=== PATIENT | male | born 1960 | race African-American/Black ===

== ENCOUNTER 2016-09-05 09:21 | Emergency (ER) | payer BC ==
[2016-09-05 09:54] VITALS: BP 138/101
--- NOTE | 2016-09-05 10:39 | UC ---
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 - History of Current Complaint Chief Complaint: UCGI Stated Complaint: DIARRHEA Time Seen by Provider: 09/05/16 10:32 Hx Obtained From: Patient Onset/Duration: Sudden Onset, Lasting Days - 2, Still Present Severity Initially: Mild Severity Currently: Mild Location: Diffuse Radiates: No Character: Cramping Aggravating Factor(s):: Food Alleviating Factor(s): Nothing Associated Signs And Symptoms: Positive: Diarrhea - Allergies/Home Medications Allergies/Adverse Reactions: Allergies Allergy/AdvReac Type Severity Reaction Status Date / Time No Known Allergies Allergy Verified 09/05/16 09:48 Home Medications: Home Medications Multiple Vitamin [Multi Vitamin] 1 tab PO DAILY 09/05/16 [History Confirmed 05/20] Ticagrelor* [Brilinta 90 MG*] 60 mg PO BID 09/05/16 [History Confirmed 09/05/16] PMH/Surg Hx/FS Hx/Imm Hx Previously Healthy: No Cardiovascular History: Cardiac Disease, Hypertension - Surgical History Surgical History: Yes Surgery Procedure, Year, and Place: abd surgery to remove foreign object at age 21. surgery on broken leg. diagnostic surgery for suspected testicular cancer - 12 yrs ago. tonsillectomy- 3 yrs ago. stent - Family History Known Family History: Positive: None - Social History Occupation: Employed Full-time Lives: With Family Alcohol Use: Occasionally Alcohol Amount: a couple of beer per month Substance Use Type: None Smoking Status (MU): Former Smoker Type: Cigars Amount Used/How Often: 4-5 puffs of a cigar some days Length of Time of Smoking/Using Tobacco: 4-5 yrs Have You Smoked in the Last Year: Yes Household Exposure Type: Cigarettes - Immunization History Most Recent Influenza Vaccination: n/a Most Recent Tetanus Shot: within 10 yrs Most Recent Pneumonia Vaccination: n/a Review of Systems Constitutional: Negative Skin: Negative Eyes: Negative ENT: Negative Respiratory: Negative Cardiovascular: Negative Gastrointestinal: Abdominal Pain, Diarrhea Genitourinary: Negative Motor: Negative Neurovascular: Negative Musculoskeletal: Negative Neurological: Negative Psychological: Negative All Other Systems Reviewed And Are Negative: Yes Physical Exam Triage Information Reviewed: Yes Appearance: Well-Appearing, No Pain Distress, Well-Nourished Vital Signs: Initial Vital Signs Temp 98.1 F 09/05/16 09:49 Pulse 75 09/05/16 09:49 Resp 16 09/05/16 09:49 BP 138/101 09/05/16 09:49 Pulse Ox 100 09/05/16 09:49 Vital Signs Reviewed: Yes Eye Exam: Normal Eyes: Positive: Conjunctiva Clear ENT Exam: Normal ENT: Positive: Normal ENT inspection, Hearing grossly normal, Pharynx normal, TMs normal. Negative: Nasal congestion, Nasal drainage, Tonsillar swelling, Tonsillar exudate, Trismus, Muffled/hoarse voice Dental Exam: Normal Neck exam: Normal Neck: Positive: Supple, Nontender, No Lymphadenopathy Respiratory Exam: Normal Respiratory: Positive: Chest non-tender, Lungs clear, Normal breath sounds, No respiratory distress, No accessory muscle use Cardiovascular Exam: Normal Cardiovascular: Positive: RRR, No Murmur, Pulses Normal, Brisk Capillary Refill Abdominal Exam: Normal Abdomen Description: Positive: Nontender, No Organomegaly, Soft Bowel Sounds: Positive: Present Musculoskeletal Exam: Normal Musculoskeletal: Positive: Strength Intact, ROM Intact, No Edema Neurological Exam: Normal Neurological: Positive: Alert, Muscle Tone Normal Psychological Exam: Normal Skin Exam: Normal Abd Pain Male Course/Dx - Course Course Of Treatment: diet modification, increase fluids, rest follow with pcp if not resolved in 2-3 days - Differential Dx/Clinical Impression Differential Diagnosis/HQI/PQRI: Bowel Obstruction, Diverticulitis, Other - acute diarrhea, Provider Diagnoses: acute diarrhea Discharge - Discharge Plan Condition: Stable Disposition: HOME Patient Education Materials: Acute Diarrhea (ED), DASH Eating Plan (ED), Hypertension (ED), Nutrition Tips for Relief of Diarrhea (ED) Forms: *Work Release Referrals: Emmett Elizabeth MD [Primary Care Provider] - 2 Days
== END 2016-09-05 10:59 | disposition home or self-care (01) ==
LOC: UCEAST 09:21
DX: R19.7 Diarrhea, unspecified (principal); I51.9 Heart disease, unspecified; Z87.891 Personal history of nicotine dependence
CPT/HCPCS: 99212; G0463

== ENCOUNTER 2017-07-20 07:09 | Emergency (ER) | payer BC ==
[2017-07-20 07:32] VITALS: BP 129/85
--- NOTE | 2017-07-20 08:11 | UC ---
HPI Febrile Illness - HPI Summary HPI Summary: 57 yr old male with body aches, sore throat, cough non productive for 24 hours. no chest pressure. no SOB. no n/v/d - History of Current Complaint Chief Complaint: UCGeneralIllness Time Seen by Provider: 07/20/17 07:33 Hx Obtained From: Patient Timing: Constant Initial Severity: Mild Current Severity: Mild Pain Intensity: 4 - Allergy/Home Medications Allergies/Adverse Reactions: Allergies Allergy/AdvReac Type Severity Reaction Status Date / Time No Known Allergies Allergy Verified 07/20/17 07:24 PMH/Surg Hx/FS Hx/Imm Hx Previously Healthy: Yes - Surgical History Surgical History: Yes Surgery Procedure, Year, and Place: abd surgery to remove foreign object at age 21. surgery on broken leg. diagnostic surgery for suspected testicular cancer - 12 yrs ago. tonsillectomy- 3 yrs ago. stent - Family History Known Family History: Positive: Cardiac Disease - Social History Occupation: Employed Full-time Lives: With Family Alcohol Use: Occasionally Alcohol Amount: a couple of beer per month Substance Use Type: None Smoking Status (MU): Former Smoker Type: Cigars Amount Used/How Often: 4-5 puffs of a cigar some days Length of Time of Smoking/Using Tobacco: 4-5 yrs Have You Smoked in the Last Year: Yes Household Exposure Type: Cigarettes - Immunization History Most Recent Influenza Vaccination: n/a Most Recent Tetanus Shot: within 10 yrs Most Recent Pneumonia Vaccination: n/a Review of Systems Constitutional: Fever, Chills, Fatigue ENT: Sore Throat, Ear Ache, Nasal Discharge, Sinus Congestion Respiratory: Cough Musculoskeletal: Myalgia Is Patient Immunocompromised?: No All Other Systems Reviewed And Are Negative: Yes Physical Exam Triage Information Reviewed: Yes Appearance: Well-Appearing, No Pain Distress, Well-Nourished Vital Signs: Initial Vital Signs Temp 98.6 F 07/20/17 07:26 Pulse 83 07/20/17 07:26 Resp 18 07/20/17 07:26 BP 129/85 07/20/17 07:26 Pulse Ox 99 07/20/17 07:26 Vital Signs Reviewed: Yes Eye Exam: Normal ENT Exam: Normal ENT: Positive: Pharynx normal, Nasal congestion, TMs normal. Negative: TM bulging, TM dull, TM red, Tonsillar swelling, Tonsillar exudate Dental Exam: Normal Neck exam: Normal Neck: Positive: 1 Respiratory Exam: Normal Cardiovascular Exam: Normal Musculoskeletal Exam: Normal Neurological Exam: Normal Psychological Exam: Normal Skin Exam: Normal Course/Dx - Course Assessment/Plan: Viral URI -- push fluids, rest, if any chest pressure go to ED. neg flu swab. - Diagnoses Clinic Provider Diagnoses: vIRAL uRI Discharge - Sign-Out/Discharge Documenting (check all that apply): Discharge/Admit/Transfer - Discharge Plan Condition: Good Disposition: HOME Patient Education Materials: Upper Respiratory Infection (ED) Forms: *Work Release Referrals: Emmett Elizabeth MD [Primary Care Provider] - 4 Days - Billing Disposition and Condition Condition: GOOD Disposition: HOME
== END 2017-07-20 08:22 | disposition home or self-care (01) ==
LOC: UCEAST 07:09
DX: J06.9 Acute upper respiratory infection, unspecified (principal); Z87.891 Personal history of nicotine dependence
CPT/HCPCS: 87502; 99211; G0463

== ENCOUNTER 2018-03-13 12:39 | Emergency (ER) | payer BC ==
[2018-03-13 13:56] VITALS: BP 140/102
--- NOTE | 2018-03-13 14:12 | UC ---
Shoulder Pain HPI - HPI Summary HPI Summary: 7-10 days of left shoulder pain and intermittent tingling of his left fourth and fifth fingers. 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 Patient feels he pulled muscles. Denies chest pain, shortness of breath, nausea, sweats. States he leans on his left elbow a lot while driving. - History of Current Complaint Chief Complaint: UCUpperExtremity Stated Complaint: NECK PAIN SHOULDER PAIN Time Seen by Provider: 03/13/18 13:02 Hx Obtained From: Patient Onset/Duration: Gradual Onset, Lasting Days, Still Present Timing: Constant Severity Initially: Moderate Severity Currently: Moderate Location Of Pain: Is Discrete @ - LEFT SHOULDER Pain Intensity: 1 Pain Scale Used: 0-10 Numeric Character: Dull Aggravating Factor(s): Movement Alleviating Factor(s): Rest Associated Signs And Symptoms: Positive: Numbness/Tingling. Negative: Swelling , Redness Related History: Dominant Hand Left - Allergies/Home Medications Allergies/Adverse Reactions: Allergies Allergy/AdvReac Type Severity Reaction Status Date / Time No Known Allergies Allergy Verified 03/13/18 13:00 PMH/Surg Hx/FS Hx/Imm Hx Cardiovascular History: Cardiac Disease - [place] S/P STENT, Hypertension - Surgical History Surgical History: Yes Surgery Procedure, Year, and Place: abd surgery to remove foreign object at age 21. surgery on broken leg. diagnostic surgery for suspected testicular cancer - 12 yrs ago. tonsillectomy- 3 yrs ago. stent 2016 - Family History Known Family History: Positive: Cardiac Disease - Social History Alcohol Use: Occasionally Alcohol Amount: a couple of beer per month Substance Use Type: None Smoking Status (MU): Former Smoker Type: Cigars Amount Used/How Often: 4-5 puffs of a cigar some days Length of Time of Smoking/Using Tobacco: 4-5 yrs Have You Smoked in the Last Year: Yes Household Exposure Type: Cigarettes - Immunization History Most Recent Influenza Vaccination: n/a Most Recent Tetanus Shot: within 10 yrs Most Recent Pneumonia Vaccination: n/a Review of Systems All Other Systems Reviewed And Are Negative: Yes Constitutional: Positive: Negative ENT: Positive: Negative Respiratory: Positive: Negative Cardiovascular: Positive: Negative Gastrointestinal: Positive: Negative Musculoskeletal: Positive: Arthralgia, Myalgia Neurological: Positive: Paresthesia Physical Exam Triage Information Reviewed: Yes Appearance: Well-Appearing, No Pain Distress, Well-Nourished Vital Signs: Initial Vital Signs Temp 98 F 03/13/18 13:02 Pulse 74 03/13/18 13:02 Resp 18 03/13/18 13:02 BP 168/110 03/13/18 13:02 Pulse Ox 98 03/13/18 13:02 Vital Signs Reviewed: Yes Eyes: Positive: Conjunctiva Clear ENT: Positive: Hearing grossly normal Neck: Positive: Supple Respiratory Exam: Normal Cardiovascular Exam: Normal Abdomen Description: Positive: Soft Musculoskeletal: Positive: ROM Intact, No Edema, Other: - TTP LEFT TRAPEZIUS. POSITIVE TINELS OVER LEFT ULNAR GROOVE. EQUIVOCAL ROTATOR CUFF TESTING Neurological: Positive: Alert Psychological: Positive: Age Appropriate Behavior Skin: Negative: Rashes Diagnostics - EKG Cardiac Rate: NL - 68BPM Cardiac Rhythm: Sinus: Normal Ectopy: None Shoulder Course/Dx - Course Assessment/Plan: PATIENT'S SYMPTOMS AND EXAM MOST CONSISTENT WITH STRAIN OF HIS LEFT TRAPEZIUS AND DELTOID MUSCLES ALONG WITH AN ULNAR NERVE PALSY. 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 SYMPTOMS ARE EXACERBATED BY THESE MOVEMENTS. 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 GIVEN HIS CLINICAL PRESENTATION, LOW SUSPICION FOR CARDIAC INVOLVEMENT AT THIS TIME BUT DISCUSSED AT LENGTH HOW WE ARE UNABLE TO RULE OUT ANY CARDIAC ETIOLOGY HERE IN THE URGENT CARE. PATIENT COUNSELED ON RED FLAG SYMPTOMS AND WILL GO TO THE ED WITHOUT FAIL IF SYMPTOMS CHANGE OR WORSEN. REPEAT BP IMPROVED AT 140/102. - Differential Dx/Diagnosis Provider Diagnosis: Strain of left trapezius muscle, Ulnar nerve palsy of left upper extremity Discharge - Sign-Out/Discharge Documenting (check all that apply): Patient Departure All imaging exams completed and their final reports reviewed: No Studies - Discharge Plan Condition: Stable Disposition: HOME Prescriptions: Cyclobenzaprine TAB* [Flexeril TAB*] 10 mg PO BID PRN #30 tab PRN Reason: Pain Naproxen [Naproxen 500 mg tab] 500 mg PO BID PRN #30 tablet PRN Reason: Pain Patient Education Materials: Shoulder Separation Exercises (GEN), Muscle Strain (ED) Forms: *Work Release Referrals: Emmett Elizabeth MD [Primary Care Provider] - (KEEP YOUR APPT NEXT WEEK) Additional Instructions: YOUR SYMPTOMS ARE CONSISTENT WITH A STRAIN OF YOUR TRAPEZIUS AND DELTOID MUSCLES ALONG WITH AN ULNAR NERVE PALSY. TAKE THE NEXT FEW DAYS TO REST AND AVOID THE REPETITIVE MOTION THAT IS LIKELY EXACERBATING YOUR SYMPTOMS. TRY NOT TO LEAN ON YOUR ELBOW. IF YOU DO NOT IMPROVE EXPECTED OVER THE NEXT FEW WEEKS FOLLOW-UP WITH YOUR PCP. YOU MAY BENEFIT FROM IMAGING AT THAT TIME. PHYSICAL THERAPY REFERRAL ALSO PROVIDED FOR YOU TO USE IF DESIRED. REST. NAPROXEN NEEDED FOR DISCOMFORT. TAKE MUSCLE RELAXER BEFORE BED. MASSAGE MAY ALSO BE HELPFUL. BE SURE TO GO THROUGH SLOW RANGE OF MOTION AND STRETCHING EXERCISES DAILY YOU ARE ABLE TO PREVENT STIFFENING UP AND MAKING THE DISCOMFORT WORSE. HANDOUT PROVIDED. LOW SUSPICION FOR ANY CARDIAC CAUSE OF YOUR SYMPTOMS BUT GO TO ED WITHOUT FAIL IF YOU DEVELOP WORSENING ARM PAIN, SHORTNESS OF BREATH, CHEST PAIN, NAUSEA, SWEATS, DIZZINESS OR ANY OTHER CONCERNING SYMPTOMS. - Billing Disposition and Condition Condition: STABLE Disposition: Home
== END 2018-03-13 14:10 | disposition home or self-care (01) ==
LOC: UCEAST 12:39
DX: S29.012A Strain of muscle and tendon of back wall of thorax, initial encounter (principal); X50.3XXA Overexertion from repetitive movements, initial encounter; Y93.89 Activity, other specified; Y92.89 Other specified places as the place of occurrence of the external cause; Y99.0 Civilian activity done for income or pay; G56.22 Lesion of ulnar nerve, left upper limb; Z87.891 Personal history of nicotine dependence
CPT/HCPCS: 93005; 99212; G0463

== ENCOUNTER 2018-08-01 11:02 | Emergency (ER) | payer BC ==
--- NOTE | 2018-08-01 11:57 | UC ---
Abdominal Pain Male HPI - HPI Summary HPI Summary: 58 yo male presents with loose stools last night. He tells me that he is has been taking an antibiotic once a day for the last week for a dental infection - unsure name of anbx. Last night he developed some loose stools and decreased appetite. States he did not sleep well last night due to having multiple BMs. Had some lower abdominal cramping that resolved with BM. Had about 5-10 episodes. This morning he feels better and has not had any more loose stools. He has not eaten anything yet this morning for fear of more diarrhea. He denies abdominal pain, n/v, dysuria, or blood in stool. - History of Current Complaint Stated Complaint: DIARRHEA Time Seen by Provider: 08/01/18 11:56 Hx Obtained From: Patient Onset/Duration: Sudden Onset Severity Initially: Mild Severity Currently: None Pain Intensity: 2 Pain Scale Used: 0-10 Numeric - Allergies/Home Medications Allergies/Adverse Reactions: Allergies Allergy/AdvReac Type Severity Reaction Status Date / Time No Known Allergies Allergy Verified 08/01/18 11:59 Home Medications: Home Medications Valsartan 320 mg PO DAILY 08/01/18 [History Confirmed 08/01/18] PMH/Surg Hx/FS Hx/Imm Hx Cardiovascular History: Cardiac Disease, Hypertension - Surgical History Surgical History: Yes Surgery Procedure, Year, and Place: abd surgery to remove foreign object at age 21. surgery on broken leg. diagnostic surgery for suspected testicular cancer - 12 yrs ago. tonsillectomy- 3 yrs ago. stent 2016 - Family History Known Family History: Positive: Cardiac Disease - Social History Occupation: Employed Full-time Lives: With Family Alcohol Use: Occasionally Alcohol Amount: a couple of beer per month Substance Use Type: None Smoking Status (MU): Former Smoker Type: Cigars Amount Used/How Often: 4-5 puffs of a cigar some days Length of Time of Smoking/Using Tobacco: 4-5 yrs Have You Smoked in the Last Year: Yes Household Exposure Type: Cigarettes - Immunization History Most Recent Influenza Vaccination: n/a Most Recent Tetanus Shot: within 10 yrs Most Recent Pneumonia Vaccination: n/a Review of Systems All Other Systems Reviewed And Are Negative: Yes Constitutional: Positive: Negative Skin: Positive: Negative Respiratory: Positive: Negative Cardiovascular: Positive: Negative Gastrointestinal: Positive: Abdominal Pain, Diarrhea Genitourinary: Positive: Negative Neurovascular: Positive: Negative Neurological: Positive: Negative Psychological: Positive: Negative Physical Exam - Summary Physical Exam Summary: GENERAL: NAD. WDWN. No pain distress. SKIN: No rashes, sores, lesions, or open wounds. NECK: Supple. Nontender. No lymphadenopathy. CHEST: CTAB. No r/r/w. No accessory muscle use. Breathing comfortably and in no distress. CV: RRR. Without m/r/g. Pulses intact. Cap refill <2seconds ABDOMEN: Soft. NTTP. No distention or guarding. No CVA tenderness. Bowel sounds present NEURO: Alert. PSYCH: Age appropriate behavior. Triage Information Reviewed: Yes Vital Signs: Vital Signs: Temp Pulse Resp BP Pulse Ox 98.2 F 74 18 172/108 99 08/01/18 11:53 08/01/18 11:53 08/01/18 11:53 08/01/18 12:37 08/01/18 11:53 Vital Signs Reviewed: Yes Abd Pain Male Course/Dx - Course Course Of Treatment: Suspect loose stools associated with anbx use, but low suspicion for c diff at this time as his loose stools have resolved this morning. Advised to hold anbx for today and start taking probiotic OTC. He has a f/u with his PCP tomorrow, instructed to discuss this with them and if loose stools/diarrhea restart would likely benefit from a stool sample. - Differential Dx/Clinical Impression Provider Diagnosis: Loose stools Discharge - Sign-Out/Discharge Documenting (check all that apply): Patient Departure All imaging exams completed and their final reports reviewed: No Studies - Discharge Plan Condition: Stable Disposition: HOME Patient Education Materials: Probiotic (By mouth), Acute Diarrhea (ED) Forms: *Work Release Referrals: Emmett Elizabeth MD [Primary Care Provider] - Additional Instructions: If you develop a fever, shortness of breath, chest pain, new or worsening symptoms - please call your PCP or go to the ED immediately. Your blood pressure was high at todays visit. Please see your primary provider within 4 weeks for recheck and re-evaluation. Please try taking an [id number] probiotic to help treat your diarrhea. Keep your recheck tomorrow with your primary doctor - Billing Disposition and Condition Condition: STABLE Disposition: Home
[2018-08-01 12:37] VITALS: BP 172/108
== END 2018-08-01 12:48 | disposition home or self-care (01) ==
LOC: UCEAST 11:02
DX: R19.5 Other fecal abnormalities (principal); R63.8 Other symptoms and signs concerning food and fluid intake; I10 Essential (primary) hypertension; Z87.891 Personal history of nicotine dependence
CPT/HCPCS: 99211; G0463

== ENCOUNTER 2019-01-24 07:21 | Emergency (ER) | payer BC ==
--- NOTE | 2019-01-24 08:14 | UC ---
Neck Pain HPI - HPI Summary HPI Summary: The patient is a 59-year-old male with a known history of severe cervical degenerative disc disease who presents here with a two-week history of right lateral neck pain radiating down the right arm. He describes the pain is burning. He notes that his symptoms worsen with use of his right arm. He is a consulting business developer. He has had some similar pattern in the past however this involved his left arm. He states it resolved with some physical therapy. He denies any headache. - History of Current Complaint Chief Complaint: UCUpperExtremity Stated Complaint: NECK PAIN Time Seen by Provider: 01/24/19 07:53 Hx Obtained From: Patient Onset/Duration Of Injury/Symptoms: Weeks Mechanism Of Injury: No Known Trauma Timing: Constant Onset/Duration: Gradual Onset, Lasting Weeks Severity: Moderate Pain Intensity: 8 Pain Scale Used: 0-10 Numeric Location: Diffuse Character: Aching, Spasmotic, Burning Aggravating Factors: Position, Movement Alleviating Factors: Nothing Associated Signs & Symptoms: Positive: Negative Head: 1 - pain here 2 - tender/firm right trap - Allergies/Home Medications Allergies/Adverse Reactions: Allergies Allergy/AdvReac Type Severity Reaction Status Date / Time No Known Allergies Allergy Verified 01/24/19 07:34 Home Medications: Home Medications Atorvastatin* [Lipitor*] 20 mg PO DAILY 01/24/19 [History Confirmed 01/24/19] PMH/Surg Hx/FS Hx/Imm Hx Previously Healthy: Yes - sarcoid Cardiovascular History: Cardiac Disease, Hypertension - Surgical History Surgical History: Yes Surgery Procedure, Year, and Place: abd surgery to remove foreign object at age 21. surgery on broken leg. diagnostic surgery for suspected testicular cancer - 12 yrs ago. tonsillectomy- 3 yrs ago. stent 2017 - Family History Known Family History: Positive: None, Cardiac Disease - Social History Alcohol Use: Weekly Alcohol Amount: a couple of beer per month Substance Use Type: None Smoking Status (MU): Former Smoker Type: Cigars Amount Used/How Often: 4-5 puffs of a cigar some days Length of Time of Smoking/Using Tobacco: 4-5 yrs Have You Smoked in the Last Year: Yes Household Exposure Type: Cigarettes - Immunization History Most Recent Influenza Vaccination: n/a Most Recent Tetanus Shot: within 10 yrs Most Recent Pneumonia Vaccination: n/a Review of Systems All Other Systems Reviewed And Are Negative: Yes Constitutional: Positive: Negative Skin: Positive: Negative Eyes: Positive: Negative ENT: Positive: Negative Respiratory: Positive: Negative Cardiovascular: Positive: Negative Gastrointestinal: Positive: Negative Genitourinary: Positive: Negative Motor: Positive: Negative Musculoskeletal: Positive: Arthralgia - neck, Myalgia - right trap Neurological: Positive: Negative Psychological: Positive: Negative Physical Exam Triage Information Reviewed: Yes Appearance: Well-Appearing, No Pain Distress, Well-Nourished Vital Signs: Initial Vital Signs Temp 98.1 F 01/24/19 07:27 Pulse 72 01/24/19 07:27 Resp 18 01/24/19 07:27 BP 00/01/24/19 07:27 Pulse Ox 99 01/24/19 07:27 Vital Signs Reviewed: Yes Eyes: Positive: Conjunctiva Clear ENT: Positive: Normal ENT inspection, Uvula midline. Negative: Nasal congestion , Nasal drainage, Tonsillar swelling, Tonsillar exudate, Trismus, Hoarse voice Dental Exam: Normal Neck: Positive: No Lymphadenopathy, Tenderness @ - right trap, Other: - limited ROM Respiratory: Positive: Lungs clear, Normal breath sounds, No respiratory distress, No accessory muscle use Cardiovascular: Positive: RRR, No Murmur Musculoskeletal: Positive: ROM Intact - right shoulder...but painful, No Edema Neurological: Positive: Alert, Other: - strength intact, brisk DTRs Psychological Exam: Normal Skin Exam: Normal Neck Pain Course/Dx - Course Course Of Treatment: Pt declined soft cervical collar - Differential Dx/Diagnosis Provider Diagnosis: Cervical radiculopathy, Strain of right trapezius muscle Discharge ED - Sign-Out/Discharge Documenting (check all that apply): Patient Departure All imaging exams completed and their final reports reviewed: No Studies - Discharge Plan Condition: Stable Disposition: HOME Prescriptions: Naproxen [Naproxen 500 mg tab] 500 mg PO BID PRN #14 tablet PRN Reason: Pain Patient Education Materials: Cervical Radiculopathy (ED) Forms: *Work Release Referrals: Emmett Elizabeth MD [Primary Care Provider] - (BP recheck in days to 2 weeks) Nely Chavez MD [Medical Doctor] - As Soon As Possible Additional Instructions: PT consult - Billing Disposition and Condition Condition: STABLE Disposition: Home
[2019-01-24 08:18] VITALS: BP 172/112
== END 2019-01-24 08:31 | disposition home or self-care (01) ==
LOC: UCEAST 07:21
DX: S46.811A Strain of other muscles, fascia and tendons at shoulder and upper arm level, right arm, initial encounter (principal); M50.10 Cervical disc disorder with radiculopathy, unspecified cervical region; I10 Essential (primary) hypertension; Z87.891 Personal history of nicotine dependence; X58.XXXA Exposure to other specified factors, initial encounter; Y92.9 Unspecified place or not applicable
CPT/HCPCS: 99212; G0463

== ENCOUNTER 2019-02-20 21:02 | Emergency (ER) | payer BC ==
--- OUTSIDE RECORDS SUMMARY | 2019-02-20 21:10 | XMS REPORT | Continuity of Care Document ---
:1960 External Reference #:[id number] Author Name Emmett Elizabeth M.D. (transmitted by agent of provider Madhavi Lundberg) Address [address], [place] [address] Care Team Providers Name Role Phone Emmett Elizabeth III, MD - Internal Care Team Information Vp Public [employer] [phone] Medicine Kana Garcia MD - Cardiovascular Care Team Information [employer] Public [employer] Disease Problems Active Problems Provider Date Essential hypertension Emmett Elizabeth M.D. 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 Onset: 03/07/2018 Cardiomyopathy, unspecified Shekhar Rg Patterson M.D., [facility], Onset: 05/02/2018 FASNC Localized, primary osteoarthritis Niki Lucia MD Onset: 09/28/2018 Social History Type Date Description Comments Sex Unknown Tobacco Use Start: Unknown End: Former Cigarette Smoker Unknown Smoking Status Reviewed: 01/18/19 Former Cigarette Smoker ETOH Use Denies alcohol use Tobacco Use Start: Unknown End: Patient is a former social smoker for Unknown smoker 10yrs. Little cigars, 3-4/week; quit July 2015. (+) 1-2 cigarettes/day in the past, quit 1996 Recreational Drug Use Denies Drug Use Exercise Type/Frequency Exercises regularly walks, active around the house Allergies, Adverse Reactions, Alerts Description No Known Drug Allergies Medications Active Medications SIG Qnty Indications Ordering Date Provider Spironolactone 1 by mouth 90tabs Emmett Hinton 12/11/2018 50mg Tablets every day Brenda Elizabeth Valsartan 1 by mouth 90tabs I10 Emmett Hinton 05/14/2018 320mg Tablets every day Brenda Elizabeth Potassium Chloride Kylah Take One Tablet 60tabs Emmett Hinton 05/05/2018 ER by mouth once a Brenda Elizabeth 20Meq Tablets ER day Metformin HCL 2 by mouth 120tabs E11.9 Emmett Hinton 03/19/2018 500mg Tablets twice a day Brenda Elizabeth Metoprolol Succinate ER 1 by mouth 90tabs Shekhar Diez 02/10/2016 every day along Brenda Patterson, 50mg Tablets ER 24HR with a 100mg FACC, FASNC tab Aspirin 1 by mouth Unknown 81mg Tablets DR every day Atorvastatin Calcium Take 1 tablet 90tabs Emmett Hinton 40mg by mouth every Brenda Elizabeth Tablets day Amlodipine Besylate 1 by mouth 30tabs Kana Garcia, 10mg every day M.DSmiley, FACC, Tablets FSCAI Metoprolol Succinate ER 1 tab by mouth 90tabs Shekhar Diez every day along Brenda Patterson, 100mg Tablets ER 24HR with a 50mg tab FACC, FASNC Multi For Him 1 tablet po Unknown Tablets daily Medications Administered in Office Medication SIG Qnty Indications Ordering Provider Date Injection Edgardo Lucia MD 10/19/2018 Derivative, Euflexxa Per Dose Injection Injection Edgardo Or Guerda Frankel PA-C 10/05/2018 Derivative, Euflexxa Per Dose Injection Injection Edgardo Or Niki Lucia MD 09/28/2018 Derivative, Euflexxa Per Dose Injection Immunizations CPT Code Status Date Vaccine Reaction Lot # [id number] Given 03/17/2017 Pneumonia Vaccine Pt. tolerated well. [id number] Vital Signs Date Vital Result Comment 01/18/2019 9:14am Height 70 inches 5'10" Weight 220.00 lb Heart Rate 66 /min BP Systolic Sitting 151 mmHg BP Diastolic Sitting 100 mmHg BMI (Body Mass Index) 31.6 kg/m2 12/11/2018 11:35am Height 70 inches 5'10" Weight 218.00 lb Heart Rate 61 /min BP Systolic 148 mmHg BP Diastolic 72 mmHg Body Temperature 97.0 F Pain Level 2 BMI (Body Mass Index) 31.3 kg/m2 Results Test Acquired Date Facility Test Result H/L Range Note Basic Metabolic 10/09/2018 [facility] Sodium 137 mmol/L Normal 135-145 [address] [place] [address] [phone] Potassium 4.5 mmol/L Normal 3.5-5.0 Chloride 110 mmol/L Normal 101-111 Co2 Carbon Dioxide 19 mmol/L Low 22-32 Anion Gap 8 mmol/L Normal 2-11 Glucose 108 mg/dL High 70-100 Blood Urea Nitrogen 19 mg/dL Normal 6-24 Creatinine 1.36 mg/dL High 0.67-1.17 BUN/Creatinine Ratio 14.0 Normal 8-20 Calcium 9.4 mg/dL Normal 8.6-10.3 Egfr Non- 54.2 >60 Egfr 65.6 >60 1 Laboratory test finding 10/09/2018 [facility] Renin 0.6 ng/mL/h [address] [place] [address] [phone] Aldosterone 39 ng/dL Abnormal <=21 3 Basic Metabolic 09/14/2018 [facility] Sodium 140 mmol/L Normal 135-145 [address] [place] [address] [phone] Potassium 4.6 mmol/L Normal 3.5-5.0 Chloride 110 mmol/L Normal 101-111 Co2 Carbon Dioxide 23 mmol/L Normal 22-32 Anion Gap 7 mmol/L Normal 2-11 Glucose 101 mg/dL High 70-100 Blood Urea Nitrogen 13 mg/dL Normal 6-24 Creatinine 1.29 mg/dL High 0.67-1.17 BUN/Creatinine Ratio 10.1 Normal 8-20 Calcium 9.6 mg/dL Normal 8.6-10.3 Egfr Non- 57.6 >60 Egfr 69.7 >60 4 Laboratory test finding 08/09/2018 [facility] In House Hemoglobin A1c 6.7 5-7 1 Because ethnic data is not always readily available, this report includes an eGFR for both -Americans and non- Americans. The National Kidney Disease Education Program (NKDEP) does not endorse the use of the MDRD equation for patients that are not between the ages of 18 and 70, are , have extremes of body size, muscle mass, or nutritional status, or are non- or non-. According to the National Kidney Foundation, irrespective of diagnosis, the stage of the disease is based on the level of kidney function: Stage Description GFR(mL/min/1.73 m(2)) 1 Kidney damage with normal or decreased GFR 90 2 Kidney damage with mild decrease in GFR 60-89 3 Moderate decrease in GFR 30-59 4 Severe decrease in GFR 15-29 5 Kidney failure <15 (or dialysis) 2 REFERENCE VALUE (Peripheral vein specimen) Na-deplete, upright: Mean: 5.9 Range: 2.9-10.8 Na-replete, upright: Mean: 1.0 Range: < or =0.6-3.0 ADDITIONAL INFORMATION Testing performed by Liquid Chromatography-Tandem Mass Spectrometry (LC-MS/MS). This test was developed and its performance characteristics determined by [facility] in a manner consistent with CLIA requirements. This test has not been cleared or approved by the U.S. Food and Drug Administration. Test Performed by: [facility] [employer] - [address] [address] 3 ADDITIONAL INFORMATION Reference range for patients 11 years and older is based on upright A.M. collection from subjects without sodium restrictions. This test was developed and its performance characteristics determined by [facility] in a manner consistent with CLIA requirements. This test has not been cleared or approved by the U.S. Food and Drug Administration. Test Performed by: [facility] [employer] - [address] [address] 4 Because ethnic data is not always readily available, this report includes an eGFR for both -Americans and non- Americans. The National Kidney Disease Education Program (NKDEP) does not endorse the use of the MDRD equation for patients that are not between the ages of 18 and 70, are , have extremes of body size, muscle mass, or nutritional status, or are non- or non-. According to the National Kidney Foundation, irrespective of diagnosis, the stage of the disease is based on the level of kidney function: Stage Description GFR(mL/min/1.73 m(2)) 1 Kidney damage with normal or decreased GFR 90 2 Kidney damage with mild decrease in GFR 60-89 3 Moderate decrease in GFR 30-59 4 Severe decrease in GFR 15-29 5 Kidney failure <15 (or dialysis) Procedures Date Code Description Status 10/19/2018 Inj/Aspir Major JT Or Bursa W/ US Completed 10/05/2018 Inj/Aspir Major JT Or Bursa W/ US Completed 09/28/2018 Inj/Aspir Major JT Or Bursa W/ US Completed 10/30/2017 [id number] Colonoscopy Completed 02/17/2016 [id number] Mammogram Completed Medical Devices Description No Information Available Encounters Type Date Location Provider Dx Diagnosis Office Visit 12/11/2018 [facility] Niki Lucia, M17.11 Unilateral primary 11:30a at [facility] osteoarthritis, right knee Office Visit 09/14/2018 Jess Hinton I10 Essential (primary) 9:00a Elfego Elizabeth M.D. 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 01/18/2019 N62 Hypertrophy of breast Emmett Elizabeth M.D. 12/11/2018 M17.11 Unilateral primary osteoarthritis, right Niki Lucia MD knee 10/19/2018 M17.11 Unilateral primary osteoarthritis, right Niki Lucia MD knee 10/05/2018 M17.11 Unilateral primary osteoarthritis, right Guerda ZHANG Frankel knee 09/28/2018 M17.11 Unilateral primary osteoarthritis, right Niki Lucia MD knee 09/14/2018 I10 Essential (primary) hypertension Emmett Elizabeth M.D. 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 hypoglycemic drugs 08/09/2018 E11.9 Type 2 diabetes mellitus without Emmett Elizabeth M.D. complications 08/09/2018 I10 Essential (primary) hypertension Emmett Elizabeth M.D. Plan of Treatment 01/18/2019 - Emmett Elizabeth M.D.I10 Essential (primary) hypertensionComments: Recent BPs 140s/80s but office BP high again today. CT scan with several small adrenal nodules and with an elevated aldosterone level in October secondary HTN remains a possibility. Continue current rx and recheck labs. Further eval for possible adrenal mediated HTN [id number] Hypertrophy of breastNew Xrays:US Breast Complete Left, Ordered: 01/18/19US Breast Complete Right, Ordered: MG Diagnostic Mammo Bilateral, Ordered: 01/18/19 Functional Status Description No Information Available Mental Status Description No Information Available Referrals Description No Information Available
--- OUTSIDE RECORDS SUMMARY | 2019-02-20 21:10 | XMS REPORT | Continuity of Care Document ---
:1960 External Reference #:[id number] Author Name Ally Hairston MD (transmitted by agent of provider Deyanira Saucedo) Address [address] [place] [address] Care Team Providers Name Role Phone Emmett Elizabeth III, MD - Internal Care Team Information Tobacco Stemmer Machine Medicine Kana Garcia MD - Cardiovascular Care Team Information [employer] [phone] Disease Ally Hairston MD - Nephrology Care Team Information [employer] Problems Active Problems Provider Date Essential hypertension Emmett Elizabeth M.D. 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 Onset: 03/07/2018 Cardiomyopathy, unspecified Shekhar Rg Patterson M.D., [facility], Onset: 05/02/2018 FASNC Localized, primary osteoarthritis Niki Lucia MD Onset: 09/28/2018 Social History Type Date Description Comments Sex Unknown Tobacco Use Start: Unknown End: Former Cigarette Smoker Unknown Smoking Status Reviewed: 02/08/19 Former Cigarette Smoker ETOH Use Denies alcohol [...] Medications SIG Qnty Indications Ordering Date Provider Nifedipine ER one by mouth 30tabs I12.9 Ally Hairston MD 02/08/2019 90mg Tablets daily ER 24HR Triamterene/Hydrochloro one by mouth 30caps I12.9 Ally Hairston MD 2018 thiazide daily 50-25mg Capsules Spironolactone 1 by mouth 90tabs Emmett E. 12/11/2018 50mg Tablets every day Brenda Elizabeth Valsartan 1 by mouth 90tabs I10 Emmett ESmiley 05/14/2018 320mg Tablets every day Brenda Elizabeth Potassium Chloride Kylah Take One Tablet 60tabs Emmett E. 05/05/2018 ER by mouth twice Brenda Elizabeth 20Meq Tablets ER a day Metformin HCL 2 by mouth 120tabs E11.9 Emmett ESmiley 03/19/2018 500mg Tablets twice a day Brenda Elizabeth Metoprolol Succinate ER 1 by mouth 90tabs Shekhar Rg 02/10/2016 every day along Brenda Patterson, 50mg Tablets ER 24HR with a 100mg FACC, FASNC tab Aspirin 1 by mouth Unknown 81mg Tablets DR every day Atorvastatin Calcium Take 1 tablet 90tabs Emmett E. 40mg by mouth every Brenda Elizabeth Tablets day Amlodipine Besylate 1 by mouth 30tabs Kana Garcia, 10mg every day Brenda, FACC, Tablets FSCAI Metoprolol Succinate ER 1 tab by mouth 90tabs Shekhar Rg every day along Brenda Patterson, 100mg Tablets ER 24HR with a 50mg tab FACC, FASNC Multi For Him 1 tablet po Unknown Tablets daily Medications Administered in Office Medication SIG Qnty Indications Ordering Provider Date Injection Edgardo Or Niki Lucia MD 10/19/2018 Derivative, Euflexxa Per Dose Injection Injection Edgardo Or Guerda Frankel PA-C 10/05/2018 Derivative, Euflexxa Per Dose Injection Injection Hyaluronan Or Niki Lucia MD 09/28/2018 Derivative, Euflexxa Per Dose Injection Immunizations CPT Code Status Date Vaccine Reaction Lot # [id number] Given 03/17/2017 Pneumonia Vaccine Pt. tolerated well. [id number] Vital Signs Date Vital Result Comment 02/08/2019 10:11am Height 70 inches 5'10" Weight 222.00 lb Heart Rate 73 /min BP Systolic Sitting 152 mmHg left arm large cuff BP Diastolic Sitting 94 mmHg left arm large cuff O2 % BldC Oximetry 99 % room air BMI (Body Mass Index) 31.9 kg/m2 01/18/2019 9:14am Height 70 inches 5'10" Weight 220.00 lb Heart Rate 66 /min BP Systolic Sitting 151 mmHg BP Diastolic Sitting 100 mmHg BMI (Body Mass Index) 31.6 kg/m2 Results Test Acquired Facility Test Result H/L Range Note Date Laboratory test 01/18/2019 [facility] Renin 1.[address] ng/mL/h [place], [place] [id number] [phone] Metanephrines 01/18/2019 [facility] Plasma Free 0.83 [address] Normetanephrine [place], [place] [id number] [phone] Plasma Free Metanephrine 0.25 3 Basic Metabolic 01/18/2019 [facility] Sodium 138 mmol/L Normal 135-[address] [place], [place] [address] [phone] Potassium 4.9 mmol/L Normal 3.5-5.0 Chloride 107 mmol/L Normal 101-111 Co2 Carbon Dioxide 27 mmol/L Normal 22-32 Anion Gap 4 mmol/L Normal 2-11 Glucose 102 mg/dL High 70-100 Blood Urea Nitrogen 19 mg/dL Normal 6-24 Creatinine 1.54 mg/dL High 0.67-1.17 BUN/Creatinine Ratio 12.3 Normal 8-20 Calcium 10.1 mg/dL Normal 8.6-10.3 Egfr Non- 47.0 >60 Egfr 56.8 >60 4 Laboratory test 01/18/2019 [facility] Aldosterone 31 Abnormal <=21 [address] ng/dL [place], [place] [address] [phone] Metanephrines 01/18/2019 [facility] Plasma Free 0.83 <0.[address] Normetanephrine nmol/[place] [address] [phone] Plasma Free Metanephrine 0.25 nmol/L <0.50 6 Basic Metabolic 10/09/2018 [facility] Sodium 137 mmol/L Normal 135-[address] [place] [address] [phone] Potassium 4.5 mmol/L Normal 3.5-5.0 Chloride 110 mmol/L Normal 101-111 Co2 Carbon Dioxide 19 mmol/L Low 22-32 Anion Gap 8 mmol/L Normal 2-11 Glucose 108 mg/dL High 70-100 Blood Urea Nitrogen 19 mg/dL Normal 6-24 Creatinine 1.36 mg/dL High 0.67-1.17 BUN/Creatinine Ratio 14.0 Normal 8-20 Calcium 9.4 mg/dL Normal 8.6-10.3 Egfr Non- 54.2 >60 Egfr 65.6 >60 7 Laboratory test finding 10/09/2018 [facility] Renin 0.6 ng/mL/h [address] [place] [address] [phone] Aldosterone 39 ng/dL Abnormal <=21 9 Basic Metabolic 09/14/2018 [facility] Sodium 140 mmol/L Normal 135-[address] [place] [address] [phone] Potassium 4.6 mmol/L Normal 3.5-5.0 Chloride 110 mmol/L Normal 101-111 Co2 Carbon Dioxide 23 mmol/L Normal 22-32 Anion Gap 7 mmol/L Normal 2-11 Glucose 101 mg/dL High 70-100 Blood Urea Nitrogen 13 mg/dL Normal 6-24 Creatinine 1.29 mg/dL High 0.67-1.17 BUN/Creatinine Ratio 10.1 Normal 8-20 Calcium 9.6 mg/dL Normal 8.6-10.3 Egfr Non- 57.6 >60 Egfr 69.7 >60 10 1 REFERENCE VALUE (Peripheral vein specimen) Na-deplete, upright: Mean: 5.9 Range: 2.9-10.8 Na-replete, upright: Mean: 1.0 Range: < or =0.6-3.0 ADDITIONAL INFORMATION Testing performed by Liquid Chromatography-Tandem Mass Spectrometry (LC-MS/MS). This test was developed and its performance characteristics determined by [facility] in a manner consistent with CLIA requirements. This test has not been cleared or approved by the U.S. Food and Drug Administration. Test Performed by: [facility] [place] [address] Journeyman Molder: Que Martinez M.D. Ph.D.; CLIA# [id number] 2 Normetanephrine, Free 0.83 nmol/L <0.90 3 Metanephrine, Free 0.25 nmol/L <0.50 ADDITIONAL INFORMATION This test was developed and its performance characteristics determined by [facility] in a manner consistent with CLIA requirements. This test has not been cleared or approved by the U.S. Food and Drug Administration. Test Performed by: [facility] [place] [address] Journeyman Molder: Que Martinez M.D. Ph.D.; CLIA# [id number] 4 Because ethnic data is not always [...] 15-29 5 Kidney failure <15 (or dialysis) 5 ADDITIONAL INFORMATION Reference range for patients 11 years and older is based on upright A.M. collection from subjects without sodium restrictions. This test was developed and its performance characteristics determined by [facility] in a manner consistent with CLIA requirements. This test has not been cleared or approved by the U.S. Food and Drug Administration. Test Performed by: [facility] [place] [address] Journeyman Molder: Que Martinez M.D. Ph.D.; CLIA# [id number] 6 ADDITIONAL INFORMATION This test was developed and its performance characteristics determined by [facility] in a manner consistent with CLIA requirements. This test has not been cleared or approved by the U.S. Food and Drug Administration. Test Performed by: [facility] [place] [address] Journeyman Molder: Que Martinez M.D. Ph.D.; CLIA# [id number] 7 Because ethnic data is not always readily [...] 15-29 5 Kidney failure <15 (or dialysis) 8 REFERENCE VALUE (Peripheral vein specimen) Na-deplete, upright: Mean: 5.9 Range: 2.9-10.8 Na-replete, upright: Mean: 1.0 Range: < or =0.6-3.0 ADDITIONAL INFORMATION Testing performed by Liquid Chromatography-Tandem Mass Spectrometry (LC-MS/MS). This test was developed and its performance characteristics determined by [facility] in a manner consistent with CLIA requirements. This test has not been cleared or approved by the U.S. Food and Drug Administration. Test Performed by: [facility] - [address] [address] 9 ADDITIONAL INFORMATION Reference range for patients 11 years and older is based on upright A.M. collection from subjects without sodium restrictions. This test was developed and its performance characteristics determined by [facility] in a manner consistent with CLIA requirements. This test has not been cleared or approved by the U.S. Food and Drug Administration. Test Performed by: [facility] - [address] [address] 10 Because ethnic data is not always readily [...] JT Or Bursa W/ US Completed 10/30/2017 [id number] Colonoscopy Completed 02/17/2016 [id number] Mammogram Completed Medical Devices Description No Information Available Encounters Type Date Location Provider Dx Diagnosis Office Visit 01/18/2019 [facility] Internal Emmett Elizabeth, I1Jayesh Essential ( primary) 9:00a Elfego Steel M.D. hypertension N62 Hypertrophy of breast E11.9 Type 2 diabetes mellitus without complications I25.10 Athscl heart disease of [place] coronary artery w/o ang pctrs E78.5 Hyperlipidemia, unspecified Office Visit 12/11/2018 [facility] Prince M17.11 Unilateral primary 11:30a Orthopedics at [facility] osteoarthritis, [place] right knee Office Visit 09/14/2018 [facility] Internal Emmett Tavera Essential (primary) 9:00a Elfego Elizabeth M.D. hypertension Office Visit 08/24/2018 Vijay Prince M25.561 Pain in right knee 8:30a Orthopedics at [facility] [place] M17.11 Unilateral primary osteoarthritis, right knee M25.461 Effusion, right knee Assessments Date Code Description Provider 02/08/2019 I12.9 Hypertensive chronic kidney disease with Ally Hairston MD stage 1 through stage 4 chronic kidney disease, or unspecified chronic kidney disease 01/18/2019 I10 Essential (primary) hypertension Emmett Elizabeth M.D. 01/18/2019 N62 Hypertrophy of breast Emmett Elizabeth M.D. 01/18/2019 E11.9 Type 2 diabetes mellitus without Emmett Elizabeth M.D. complications 01/18/2019 I25.10 Atherosclerotic heart disease of [place] Emmett Elizabeth M.D. coronary artery with 01/18/2019 E78.5 Hyperlipidemia, unspecified Emmett Elizabeth M.D. 12/11/2018 M17.11 Unilateral primary osteoarthritis, right Niki Lucia MD knee 10/19/2018 M17.11 Unilateral primary osteoarthritis, right Niki Lucia MD knee 10/05/2018 M17.11 Unilateral primary osteoarthritis, right Guerda Frankel PA-C knee 09/28/2018 M17.11 Unilateral primary osteoarthritis, right Niki Lucia MD knee 09/14/2018 I10 Essential (primary) hypertension Emmett Elizabeth M.D. 08/24/2018 M25.561 Pain in right knee Niki Lucia MD 08/24/2018 M17.11 Unilateral primary osteoarthritis, right Niki Lucia MD knee 08/24/2018 M25.461 Effusion, right knee Niki Lucia MD Plan of Treatment Future Appointment(s):03/22/2019 10:00 am - Ally Hairston MD at [facility] [id number] /06/2019 - Ally Hairston MDI12.9 Hypertensive chronic kidney disease with stage 1 through stage 4 chronic kidney disease, or unspecified chronic kidney diseaseNew Medication:Nifedipine ER 90 mg - one by mouth dailyTriamterene/ Hydrochlorothiazide 50-25 mg - one by mouth dailyComments:- d/c spironolactone and amlodipine Functional Status Description No Information Available Mental Status Description No Information Available Referrals Refer to Dr Reason for Referral Status Appt Date Ally Hairston MD Difficult to control HTN with elevated Sent aldosterone level and bilat small adrenal nodules. ? secondary HTN [address] [place] [address] [phone] Ally Hairston MD Difficult to control HTN with elevated aldosterone Sent level and bilat small adrenal nodules. ? secondary HTN [address] [place] [address] [phone]
[2019-02-20 21:22] VITALS: BP 147/96
--- NOTE | 2019-02-20 21:25 | UC ---
Dizzy HPI HPI Summary: Mosheiteashlie diez x 1 wk after his kidney doc changed his meds. he notices most when he goes from sitting to standing. 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 denies chest pain or sob. he has been shoveling a lot and has not had dizziness or chest pain w/ this activity. - History Of Current Complaint Chief Complaint: UCDizziness Stated Complaint: DIZZINESS Time Seen by Provider: 02/20/19 21:11 Hx Obtained From: Patient Pain Intensity: 0 - Allergies/Home Medications Allergies/Adverse Reactions: Allergies Allergy/AdvReac Type Severity Reaction Status Date / Time No Known Allergies Allergy Verified 02/20/19 21:17 Home Medications: Home Medications NIFEdipine CAP* [Procardia CAP*] 1 tab PO DAILY 02/20/19 [History Confirmed ] Triamterene/HCTZ 37.5-25 MG* [Dyazide CAP*] 1 tab PO DAILY 02/20/19 [History Confirmed 02/20/19] PMH/Surg Hx/FS Hx/Imm Hx Previously Healthy: Yes Cardiovascular History: Cardiac Disease, Hypertension, Myocardial Infarction - Surgical History Surgical History: Yes Surgery Procedure, Year, and Place: abd surgery to remove foreign object at age 21. surgery on broken leg. diagnostic surgery for suspected testicular cancer - 12 yrs ago. tonsillectomy- 3 yrs ago. stent 2016 - Family History Known Family History: Positive: None, Cardiac Disease - Social History Alcohol Use: Weekly Alcohol Amount: a couple of beer per month Substance Use Type: None Smoking Status (MU): Former Smoker Type: Cigars Amount Used/How Often: 4-5 puffs of a cigar some days Length of Time of Smoking/Using Tobacco: 4-5 yrs Have You Smoked in the Last Year: Yes Household Exposure Type: Cigarettes - Immunization History Most Recent Influenza Vaccination: n/a Most Recent Tetanus Shot: within 10 yrs Most Recent Pneumonia Vaccination: n/a Review of Systems All Other Systems Reviewed And Are Negative: Yes Constitutional: Negative: Fever, Chills, Fatigue Respiratory: Negative: Shortness Of Breath, Cough, Other - PND Motor: Negative: Weakness Neurological: Positive: Other - dizziness. Negative: Headache, Weakness Physical Exam Triage Information Reviewed: Yes Appearance: Well-Appearing Vital Signs: Initial Vital Signs Temp 97.8 F 02/20/19 21:10 Pulse 87 02/20/19 21:10 Resp 16 02/20/19 21:10 BP 136/97 02/20/19 21:10 Pulse Ox 99 02/20/19 21:10 Vital Signs Reviewed: Yes Eyes: Positive: Conjunctiva Clear Neck: Positive: Supple Respiratory Exam: Normal Cardiovascular Exam: Normal Dizzy Course/Dx - Course Course Of Treatment: 1 wk of intermittent dizziness after his bp meds were changed by renal. He felt it was positional especially when going from sitting to standing. EKG initially concerning but when compared to old one from earlier this year it was reassuring. No cardiac symptoms although he did have risk factors. Had orthostatic bp as well. plan is to have him go to ED if symptoms persist or worsen. advised to drink more fluids and to call renal tomorrow for walk in appt. reviewed case w/ Dr. Edge. - Differential Dx/Diagnosis Provider Diagnosis: Orthostatic hypertension, Dizziness Discharge ED - Sign-Out/Discharge Documenting (check all that apply): Patient Departure All imaging exams completed and their final reports reviewed: No Studies - Discharge Plan Condition: Good Disposition: HOME Patient Education Materials: Syncope (ED) Forms: *Work Release Referrals: Emmett Elizabeth MD [Primary Care Provider] - Additional Instructions: If you feel any worse please go to the Emergency Dept. You will need to call your Renal Doctor tomorrow AM and see if you can be evaluated there. Increase your fluid in intake. - Billing Disposition and Condition Condition: GOOD Disposition: Home
== END 2019-02-20 21:45 | disposition home or self-care (01) ==
LOC: UCEAST 21:02
DX: I10 Essential (primary) hypertension (principal); R42 Dizziness and giddiness; I25.2 Old myocardial infarction; Z87.891 Personal history of nicotine dependence
CPT/HCPCS: 93005; 99211; G0463

== ENCOUNTER 2019-09-24 19:28 | Inpatient (IN) ==
[2019-09-24 19:57] LABS: ABS Basophils 0.1 10^3/ul (0-0.2); ABS Lymphocytes 2.1 10^3/ul (1.0-4.8); ABS Monocytes 0.4 10^3/ul (0-0.8); Eosinophil % 0.7 %; Hematocrit 34 % (42-52); Hemoglobin 12.1 g/dL (14.0-18.0); Lymphocyte % 40.3 %; Mean Corpuscular HGB Conc 35 g/dL (31-36); Mean Corpuscular Hemoglobin 27 pg (27-31); Mean Corpuscular Volume 77 fL (80-94); Nucleated Red Blood Cells % 0.1; Platelet Count 197 10^3/uL (150-450); Red Blood Count 4.46 10^6 /uL (4.18-5.48); Red Cell Distribution Width 16 % (10-15); White Blood Count 5.3 10^3/uL (3.5-10.8)
[2019-09-24 20:08] LABS: INR 0.94 (0.82-1.09)
[2019-09-24 20:14] LABS: ALT 11 U/L (7-52); AST 16 U/L (13-39); Albumin 4.1 g/dL (3.2-5.2); Albumin/Globulin Ratio 1.5 (1-3); Alkaline Phosphatase 56 U/L (34-104); Anion Gap 8 mmol/L (2-11); BUN/Creatinine Ratio 10.9 (8-20); Blood Urea Nitrogen 14 mg/dL (6-24); CO2 Carbon Dioxide 26 mmol/L (22-32); Calcium 9.5 mg/dL (8.6-10.3); Chloride 104 mmol/L (101-111); EGFR African American 69.5 (>60); EGFR Non-African American 57.4 (>60); Globulin 2.8 g/dL (2-4); Glucose 199 mg/dL (70-100); Potassium 3.2 mmol/L (3.5-5.0); Sodium 138 mmol/L (135-145); Total Protein 6.9 g/dL (6.4-8.9)
[2019-09-24 20:20] LABS: Troponin I 0.05 ng/mL (<0.03)
[2019-09-24] MEDS ORDERED: Al Hydrox/Mg Hydrox/Simet LIQ 30 ML UDC PO PRN (21:30)
[2019-09-24 21:42] LABS: Activated Partial Thrombo Time 31.2 seconds (26.0-38.0)
[2019-09-24] MEDS ORDERED: hydrALAZINE 20 mg/ml 1 ML Vial IV IV SLOW PU PRN (21:46)
[2019-09-24 22:07] LABS: Cholesterol 110 mg/dL; HDL Cholesterol 30.8 mg/dL; LDL Cholesterol 23 mg/dL; Triglycerides 283 mg/dL
[2019-09-24 23:01] LABS: Troponin I 0.08 ng/mL (<0.03)
[2019-09-25] MEDS: Enoxaparin 40 MG/0.4 ML SYR(*) SUBCUT SCH ×2 (00:01→21:28)
[2019-09-25 02:23] LABS: Troponin I 0.18 ng/mL (<0.03)
[2019-09-25 06:25] LABS: Troponin I 0.27 ng/mL (<0.03)
[2019-09-25] MEDS ORDERED: Potassium Chlor 20 meq TAB.ER PO SCH (09:00)
[2019-09-25] MEDS: Aspirin EC 81 mg TAB.EC (enteric coated) PO SCH (09:06)
[2019-09-25] MEDS ORDERED: Potassium Chlor 20 meq TAB.ER PO ONE (09:14)
[2019-09-25 09:27] LABS: Creatine Kinase 155 U/L (10-223); Magnesium 1.8 mg/dL (1.9-2.7)
[2019-09-25 09:33] LABS: CKMB ng/mL 4.3 ng/mL (0.6-6.3)
[2019-09-25] MEDS ORDERED: Perflutren Lipid Microsphere 3 ML VIAL ONE (09:57)
[2019-09-25] MEDS ORDERED: Magnesium Sulfate 2 gm BAG 2 GM/50 ML BAG IVPB ONE (09:59)
[2019-09-25] MEDS ORDERED: NS 0.9% 500 ml BAG 500 ML IV ONE (10:19)
[2019-09-25] MEDS ORDERED: diPHENhydraMINE 25 mg TAB PO PRN (10:40)
[2019-09-25] MEDS ORDERED: Lidocaine 1% VIAL 10 MG/ML VIAL ONE (11:32)
[2019-09-25] MEDS ORDERED: Heparin 2 UNITS/ML 1000 mls 2,000 ML IV ONE (11:33)
[2019-09-25] MEDS ORDERED: Iohexol 350 (CONTRAST) 200 ML MDV IV ONE (11:33)
[2019-09-25 11:37] LABS: Activated Partial Thrombo Time 32.8 seconds (26.0-38.0); INR 0.97 (0.82-1.09)
[2019-09-25] MEDS ORDERED: VERAPAMIL 2.5 MG/ML 2 ML VIAL ** 5 mg/2 ml ONE (11:39)
[2019-09-25] MEDS ORDERED: Midazolam 5 mg/5 ml VIAL 1 mg/ml 5 ml VIAL (5 mg) ONE (11:39)
[2019-09-25] MEDS ORDERED: Heparin 1,000 UNIT/ML CATH LAB 1,000 10 ml (10,000 UNITS) IV ONE (11:39)
[2019-09-25] MEDS ORDERED: fentaNYL 100 mcg/2 ml 50 MCG/ML VIAL ONE (11:39)
[2019-09-25] MEDS ORDERED: nitroGLYCERIN DRIP 25,000 MCG/250 ML BTL ONE (11:39)
[2019-09-25] MEDS ORDERED: Iodixanol 320 (CONTRAST) 100 ML SDV ONE (11:45)
[2019-09-25] MEDS ORDERED: NS 0.9% 1000 ml BAG 1,000 ML IV SCH (13:00)
[2019-09-26 06:48] LABS: ABS Lymphocytes 1.6 10^3/ul (1.0-4.8); ABS Monocytes 0.4 10^3/ul (0-0.8); Eosinophil % 0.5 %; Hematocrit 34 % (42-52); Hemoglobin 11.4 g/dL (14.0-18.0); Lymphocyte % 36.2 %; Mean Corpuscular HGB Conc 34 g/dL (31-36); Mean Corpuscular Hemoglobin 26 pg (27-31); Mean Corpuscular Volume 77 fL (80-94); Mean Platelet Volume 7.7 fL (7.4-10.4); Platelet Count 186 10^3/uL (150-450); Red Blood Count 4.35 10^6 /uL (4.18-5.48); Red Cell Distribution Width 16 % (10-15); White Blood Count 4.4 10^3/uL (3.5-10.8)
[2019-09-26 07:00] LABS: BUN/Creatinine Ratio 9.6 (8-20); Calcium 8.4 mg/dL (8.6-10.3); EGFR African American 79.3 (>60); EGFR Non-African American 65.5 (>60); Magnesium 2.1 mg/dL (1.9-2.7); Potassium 3.3 mmol/L (3.5-5.0)
[2019-09-26] MEDS ORDERED: Potassium Chlor 20 meq TAB.ER PO ONE (08:04)
[2019-09-26] MEDS: Aspirin EC 81 mg TAB.EC (enteric coated) PO SCH (08:38)
[2019-09-26] MEDS ORDERED: Ranolazine 500 mg TAB (NF) PO SCH (11:00)
[2019-09-26 11:34] VITALS: BP 143/91
== END 2019-09-26 14:30 | disposition home or self-care (01) | DRG 190 ==
LOC: MEDTELE 19:28 → ED 19:28 → MEDTELE 23:02
PROVIDERS: ADMIT Student in an Organized Health Care Education/Training Program; ATTEND Internal Medicine